=== PATIENT | female | born 1990 | race Caucasian/White ===

== ENCOUNTER 2017-05-23 10:16 | Outpatient (CLI) | payer OTHER ==
[~2017-05-23] VITALS: Ht 165.1 cm; Wt 113.3 kg
[2017-05-23 10:46] VITALS: BP 109/61
[2017-05-23] MEDS ORDERED: FOLIC ACID1 MG PO (11:01)
[2017-05-23] MEDS ORDERED: PRENATAL TABLE1 EAC3 PO (11:02)
[2017-05-23] MEDS ORDERED: LIALDA1.2 GM PO (11:03)
[2017-05-23] MEDS ORDERED: FOLIC ACID0.8 MG PO (11:04)
== END 2017-05-23 12:20 | disposition home or self-care (01) ==
LOC: LDRP-OP 10:16 → 2WEST 10:17 → LDRP-OP 09-01 12:19
DX: O28.8 Other abnormal findings on antenatal screening of mother (principal); O30.043 Twin pregnancy, dichorionic/diamniotic, third trimester; Z3A.30 30 weeks gestation of pregnancy
CPT/HCPCS: 59025; G0378; J0702

== ENCOUNTER 2017-06-11 11:39 | Outpatient (CLI) | payer OTHER ==
[~2017-06-11 11:39] MED LIST: FOLIC ACID0.8 MG PO; FOLIC ACID1 MG PO; LIALDA1.2 GM PO; PRENATAL TABLE1 EAC3 PO
[2017-06-11 12:07] VITALS: BP 106/71
[2017-06-11 12:42] VITALS: BP 110/73
[2017-06-11 13:09] LABS: EOSINOPHIL (%) 0.6 % (0-5); EOSINOPHIL COUNT 0.1 K/uL (0-0.3); HEMATOCRIT 39.2 % (36.0-46.0); IMMATURE GRANULOCYTE (%) 0.6 % (0.0-0.7); IMMATURE GRANULOCYTE COUNT 0.1 K/uL; LYMPHOCYTE COUNT 1.7 K/uL (1.0-2.8); MCH 28.6 PG (29.0-34.0); MCHC 33.2 G/DL (30.0-36.0); MCV 86.2 FL (83-99); MEAN PLAT.VOLUME 9.7 uM^3 (9.5-12.4); MONOCYTE (%) 7.9 % (3-12); MONOCYTE COUNT 0.8 K/uL (0-0.8); NEUTROPHIL (%) 73.3 % (45-76); PLATELET COUNT 199 K/uL (156-360); RBC DIS.WIDTH-CV 14.1 % (11.8-14.6); RBC DIS.WIDTH-SD 44.8 % (39-53); RED BLOOD COUNT 4.55 M/uL (3.80-5.20); WHITE BLOOD COUNT 9.6 K/uL (4.1-10.2)
[2017-06-11 13:13] LABS: UR CREATININE CONCENTRATION 137.1 MG/DL
[2017-06-11 13:37] LABS: ALKALINE PHOSPHATASE 128 IU/L (3-129); ANION GAP 10 MEQ/L (2-14); CHLORIDE 106 MEQ/L (99-109); GFR ESTIMATE (CALCULATED) > 59 mL/min/; GLUCOSE 82 mg/dL (70-99); POTASSIUM 4.2 MEQ/L (3.7-5.4); SAMPLE HEMOLYSIS CHECK 0; SAMPLE ICTERIC CHECK 0; SAMPLE LIPEMIA CHECK 0; SODIUM 139 MEQ/L (136-147); TOTAL BILIRUBIN 0.2 MG/DL (0.0-1.0); UREA NITROGEN (BUN) 8 mg/dL (9-23)
== END 2017-06-11 14:15 | disposition home or self-care (01) ==
LOC: LDRP-OP 11:39 → 2WEST 11:41 → LDRP-OP 09-01 08:31
PROVIDERS: Midwife
DX: O13.3 Gestational [pregnancy-induced] hypertension without significant proteinuria, third trimester (principal); Z3A.32 32 weeks gestation of pregnancy; O30.043 Twin pregnancy, dichorionic/diamniotic, third trimester; O99.213 Obesity complicating pregnancy, third trimester; O09.813 Supervision of pregnancy resulting from assisted reproductive technology, third trimester
CPT/HCPCS: 59025; 80053; 82570; 84156; 85025; G0378

== ENCOUNTER 2017-06-18 14:11 | Outpatient (CLI) | payer OTHER ==
[2017-06-18 14:57] VITALS: BP 120/76
== END 2017-06-18 16:10 | disposition home or self-care (01) ==
LOC: LDRP-OP 14:11 → 2WEST 14:13 → LDRP-OP 09-01 14:42
DX: O9A.213 Injury, poisoning and certain other consequences of external causes complicating pregnancy, third trimester (principal); S76.902A Unspecified injury of unspecified muscles, fascia and tendons at thigh level, left thigh, initial encounter; S76.901A Unspecified injury of unspecified muscles, fascia and tendons at thigh level, right thigh, initial encounter; Z3A.33 33 weeks gestation of pregnancy; W01.0XXA Fall on same level from slipping, tripping and stumbling without subsequent striking against object, initial encounter; Y93.01 Activity, walking, marching and hiking; Y92.9 Unspecified place or not applicable; Y99.0 Civilian activity done for income or pay; O36.5931 Maternal care for other known or suspected poor fetal growth, third trimester, fetus 1; O30.033 Twin pregnancy, monochorionic/diamniotic, third trimester
CPT/HCPCS: 59025; G0378

== ENCOUNTER 2017-06-29 15:04 | Inpatient (IN) | payer OTHER ==
[~2017-06-29] VITALS: Ht 165.1 cm; Wt 120.9 kg
[2017-06-29 15:22] VITALS: BP 116/69
[2017-06-29] MEDS ORDERED: ASPIR 8181 M1 PO (15:33)
[2017-06-29 16:18] LABS: EOSINOPHIL (%) 0.5 % (0-5); EOSINOPHIL COUNT 0.1 K/uL (0-0.3); HEMATOCRIT 39.2 % (36.0-46.0); IMMATURE GRANULOCYTE COUNT 0.1 K/uL; INSTRUMENT ABS NEUTROPHIL CT 8.6 K/uL; LYMPHOCYTE COUNT 1.5 K/uL (1.0-2.8); MCH 28.8 PG (29.0-34.0); MCHC 33.7 G/DL (30.0-36.0); MCV 85.6 FL (83-99); MEAN PLAT.VOLUME 9.8 uM^3 (9.5-12.4); MONOCYTE (%) 6.9 % (3-12); MONOCYTE COUNT 0.8 K/uL (0-0.8); NEUTROPHIL (%) 77.5 % (45-76); NEUTROPHIL COUNT 8.6 K/uL (1.8-6.4); PLATELET COUNT 207 K/uL (156-360); RBC DIS.WIDTH-CV 14.6 % (11.8-14.6); RBC DIS.WIDTH-SD 45.7 % (39-53); RED BLOOD COUNT 4.58 M/uL (3.80-5.20)
[2017-06-29 17:23] VITALS: BP 122/76
[2017-06-29 19:38] VITALS: BP 124/75
[2017-06-30] VITALS: BP 120/72
[2017-06-30 03:19] VITALS: BP 114/66
[2017-06-30 07:52] VITALS: BP 108/58
[2017-06-30 11:56] VITALS: BP 119/61
[2017-06-30] MEDS ORDERED: IBUPROFEN800 MG PO (14:42)
[2017-06-30] MEDS ORDERED: ENDOCET 5-3251 EACH PO (14:42)
[2017-06-30] MEDS ORDERED: DOCUSATE SODIU100 MG PO (14:42)
[2017-06-30 15:58] VITALS: BP 117/63
[2017-06-30 17:11] VITALS: BP 109/55
[2017-07-01 07:02] LABS: EOSINOPHIL (%) 0.1 % (0-5); HEMATOCRIT 35.7 % (36.0-46.0); IMMATURE GRANULOCYTE (%) 1.3 % (0.0-0.7); IMMATURE GRANULOCYTE COUNT 0.2 K/uL; INSTRUMENT ABS NEUTROPHIL CT 11.3 K/uL; LYMPHOCYTE COUNT 1.6 K/uL (1.0-2.8); MCH 28.9 PG (29.0-34.0); MCHC 33.1 G/DL (30.0-36.0); MCV 87.5 FL (83-99); MEAN PLAT.VOLUME 9.7 uM^3 (9.5-12.4); NEUTROPHIL (%) 80.2 % (45-76); NEUTROPHIL COUNT 11.3 K/uL (1.8-6.4); PLATELET COUNT 210 K/uL (156-360); RBC DIS.WIDTH-CV 14.9 % (11.8-14.6); RED BLOOD COUNT 4.08 M/uL (3.80-5.20); WHITE BLOOD COUNT 14.1 K/uL (4.1-10.2)
[2017-07-01 07:20] VITALS: BP 93/53
[2017-07-01 12:47] VITALS: BP 111/67
[2017-07-01 15:35] VITALS: BP 116/62
[2017-07-02 07:11] VITALS: BP 117/61
[2017-07-02 10:28] VITALS: BP 117/76
[2017-07-02 15:32] VITALS: BP 112/86
[2017-07-02 22:56] VITALS: BP 114/73
[2017-07-03 07:52] VITALS: BP 117/77
[2017-07-03 22:57] VITALS: BP 131/75
[2017-07-04 07:49] VITALS: BP 128/83
== END 2017-07-04 21:30 | disposition home or self-care (01) | DRG 765 ==
LOC: LDRP-OP 15:04 → 2WEST 15:05 → LDRP-OP 09-01 21:42
PROVIDERS: Obstetrics & Gynecology
PROC: 10D00Z1 Extraction of Products of Conception, Low, Open Approach (ICD-10-PCS; principal; 2017-06-30)
DX: O60.14X0 Preterm labor third trimester with preterm delivery third trimester, not applicable or unspecified (principal); O41.03X0 Oligohydramnios, third trimester, not applicable or unspecified; O32.1XX0 Maternal care for breech presentation, not applicable or unspecified; O75.89 Other specified complications of labor and delivery; O30.043 Twin pregnancy, dichorionic/diamniotic, third trimester; Z3A.35 35 weeks gestation of pregnancy; O36.5930 Maternal care for other known or suspected poor fetal growth, third trimester, not applicable or unspecified; Z37.2 Twins, both liveborn; E66.01 Morbid (severe) obesity due to excess calories; O99.214 Obesity complicating childbirth; Z68.41 Body mass index [BMI] 40.0-44.9, adult; O99.62 Diseases of the digestive system complicating childbirth; K58.9 Irritable bowel syndrome, unspecified
CPT/HCPCS: 85025; 86850; 86900; 86901; G0378; J0690; J0702; J1100; J1200; J1885; J2274; J2405; J2765; J3010; J7120